=== PATIENT | male | born 2000 | race Caucasian/White ===

== ENCOUNTER 2024-10-17 11:28 | Inpatient (IN) ==
[2024-10-17] MEDS: KETOROLAC TROMETHAMINE 60 MG/2 ML VIAL IM STA (12:39)
--- NOTE | 2024-10-17 12:39 | Emergency Department Note ---
Impression & Plan Rhabdomyolysis, Pain of right arm ED Provider Note CHIEF COMPLAINT: Right arm pain x 3 days HISTORY OF PRESENT ILLNESS: Patient is a [id number] 24-year-old male who presents to the emergency department for evaluation of right arm pain. He states he was at the gym 3 days ago and did an arm workout, specifically exercised his triceps. He reports that evening he had expected discomfort from exercising. The following day, he was sore and used some ibuprofen, his pain was manageable. Unfortunately, the arm pain is getting worse. It is primary located in the distal triceps region. It is now wrapping around to the front of the arm and radiating toward his hand and toward the shoulder. He has tried ibuprofen, ice, warm bath, Biofreeze and topical diclofenac, all without relief. He has his Dexcom in the right triceps region, it has been there for about 8 days. There is no numbness or tingling. No swelling. He denies any symptoms in the left arm. REVIEW OF SYSTEMS: Review of systems as per HPI. All other systems reviewed were negative. 10 systems reviewed. PMH: External medical records are reviewed and summarized as above/below. See Problem List. SOCIAL HISTORY: Patient lives locally. Employed. PHYSICAL EXAM: Vital Signs: Reviewed Nurse's notes. CONSTITUTIONAL: Patient is a well-appearing 24-year-old male in no acute distress laying on the gurney. CARDIOVASCULAR: Regular rate and rhythm. Peripheral pulses easily palpable. RESPIRATORY: Breath sounds equal and clear to auscultation. MUSCULOSKELETAL: Examination of the right upper extremity does not reveal any obvious deformity. There is no erythema, increased warmth, swelling or palpable cords. Patient's Dexcom is in the right posterior upper arm. The patient has tenderness to palpation over the right tricep, particularly lateral muscle belly and distally. He has pain with flexion and extension of the forearm. No pain over the biceps of the forearm. Mild discomfort over the deltoid. Shoulder range of motion is full. Radial and ulnar pulses are easily palpable. Sensation to light touch is intact. INTEGUMENTARY: No lesions or rash, normal skin turgor. LYMPH: No lymphadenopathy. EMERGENCY DEPARTMENT COURSE: The patient was seen and assessed as above. External medical records are reviewed. He presents to the emergency department for evaluation of right arm pain after exercising a couple of days ago. Radiographs were deferred, as the patient had no direct trauma. Given the muscle soreness out of proportion with exam and mechanism, BMP and total CK were collected. He was treated with IM Toradol. Labs per my interpretation note normal renal function, [place] [id number]. Findings are consistent with rhabdomyolysis. IV lock was initiated. He was hydrated with normal saline solution. After review of the information above and other included data, I feel the patient will require inpatient care for hydration and monitoring of labs. Case reviewed with Dr. Snyder, discussed with ED telehealth case manager, and reviewed with the [facility] hospitalist, Dr. Gomez. Please refer to the hospitalist orders and H&P for further information. Differential diagnoses considered included muscle strain, overuse injury, tendinitis, rhabdo, triceps or biceps tendon rupture, among others. Past Med/Surg History Problem List Pain of right arm (Acute) Rhabdomyolysis (Acute) Viral upper respiratory infection (Acute) Numbness of toes (Acute) Low back pain (Acute) COVID-19 (Acute) Medical History Type 1 diabetes Surgical History No pertinent past surgical history Social History Smoking Status: Never smoker Preferred Language: Chinese Feels Safe at Home: Yes Allergies Allergies Allergy/AdvReac Type Severity Reaction Status Date / Time adapalene Allergy Itching Verified 07/30/24 19:47 amoxicillin Allergy Hives Verified 07/30/24 19:47 Home Meds Home Medications Medication Instructions Recorded Confirmed insulin pump [id number] 10/17/24 10/17/24 Results & Data (ED) Vital Signs Vital Signs - 24 hr 10/17/24 11:30 10/17/24 14:29 10/17/24 15:48 Temperature 36.5 C Temperature Source Skin Pulse Rate 84 68 Pulse Rate [Left Finger] 66 Respiratory Rate 16 20 Respiratory Effort / Characteristics Respiratory Depth Blood Pressure 135/83 Blood Pressure [Left Arm] 140/78 Blood Pressure Mean 100 Blood Pressure Mean [Left Arm] 98 Blood Pressure Position [Left Arm] Pulse Oximetry 98 100 Oxygen Delivery Method Sepsis Recent Fever Within 48 Hours No Sepsis New/Unexplained Change in Mental Status N/A Sepsis Action Taken by Nursing No Action Required 10/17/24 16:00 Temperature Temperature Source Pulse Rate Pulse Rate [Left Finger] 69 Respiratory Rate 18 Respiratory Effort / Characteristics Non-Labored Spontaneous Respiratory Depth Normal Blood Pressure Blood Pressure [Left Arm] 140/78 Blood Pressure Mean Blood Pressure Mean [Left Arm] 98 Blood Pressure Position [Left Arm] Sitting Pulse Oximetry 100 Oxygen Delivery Method Room Air Sepsis Recent Fever Within 48 Hours Sepsis New/Unexplained Change in Mental Status Sepsis Action Taken by Jail Medications Current Medication List: was personally reviewed by me Laboratory Data Attestation: I reviewed the patient's lab results. 10/17/24 12:46 10/17/24 12:46 Lab Results 10/17/24 Range/Units 12:46 WBC 5.54 (4.8-10.8) K/ul RBC 4.99 (4.70-6.10) M/uL Hgb 15.0 (14.0-18.0) g/dl Hct 43.6 (42.0-52.0) % MCV 87.4 (80.0-100.0) fL MCH 30.1 (25.0-34.0) pg MCHC 34.4 (32.0-36.0) g/dL RDW Std Deviation 38.3 (36.4-46.3) fL RDW Coeff of Anastacio 11.9 (11.5-14.5) % Plt Count 246 (130-400) K/uL MPV 11.5 (9.4-12.4) fL Immature Gran % (Auto) 0.4 % Neut % (Auto) 64.2 % Lymph % (Auto) 24.0 % Bollinger % (Auto) 8.7 % Eos % (Auto) 2.0 % Baso % (Auto) 0.7 % Neut # (Auto) 3.56 (1.40-6.50) K/uL Lymph # (Auto) 1.33 (1.20-3.40) K/uL Bollinger # (Auto) 0.48 (0.11-0.59) K/uL Eos # (Auto) 0.11 (0.00-0.50) K/uL Baso # (Auto) 0.04 (0.00-0.20) K/uL Immature Gran # (Auto) 0.02 (0.01-0.20) K/uL Sodium 137 (136-145) mmol/L Potassium 4.7 (3.5-5.1) mmol/L Chloride 103 (98-107) mmol/L Carbon Dioxide 30 (21-32) mmol/L Anion Gap 4 (3-11) BUN 19 (6-23) mg/dl Creatinine 0.78 (0.6-1.4) mg/dl Est Cr Clr Drug Dosing 154.0 ml/min eGFR 129.31 BUN/Creatinine Ratio 24.4 H (10-20) Glucose 248 H (70-99(Fasting)) mg/dl Calcium 9.1 (8.6-10.3) mg/dl Total Creatine Kinase 05631 H (30-223) U/L Administered Medications Discontinued Medications Sodium Chloride (Nss) 1,000 mls @ 999 mls/hr IV .Q1H1M SARA Stop: 10/17/24 15:17 Last Infusion: 10/17/24 15:30 Dose: Infused Documented By: Admin: 10/17/24 14:35 Dose: 999 mls/hr Documented By: ROCKY Sodium Chloride (Nss) 1,000 mls @ 999 mls/hr IV .Q1H1M ONE Stop: 10/17/24 16:00 Last Admin: 10/17/24 15:30 Dose: 999 mls/hr Documented By: OSORIO Ketorolac Tromethamine (Ketorolac Tromethamine 60 Mg/2 Ml Vial) 60 mg IM NOW STA Stop: 10/17/24 12:35 Last Admin: 10/17/24 12:39 Dose: 60 mg Documented By: ML Discharge Plan Visit Data Chief Complaint: Arm Pain Stated Complaint: RT ARM PAIN ED Provider: Iván Snyder ED Midlevel Provider: Alessio Todd Discharge Problem: Rhabdomyolysis, Pain of right arm Patient Disposition: Being Evaluated by Hospitalist Forms Stand Alone Forms: My [facility] Prescriptions Prescriptions: No Action (DME) insulin pump [id number] Referrals Referrals: Alfonzo Valdes MD [Primary Care Provider] -
[2024-10-17 13:29] LABS: BUN Creatinine Ratio 24.4 (10-20); Calcium 9.1 mg/dl (8.6-10.3); Potassium 4.7 mmol/L (3.5-5.1)
--- NOTE | 2024-10-17 14:19 | History & Physical Report ---
Date of Service October 17, 2024 Assessment & Plan (1) Rhabdomyolysis: Plan: [place] [address] Aggressive IV fluids, monitor CK levels Pain control Consider imaging studies if no improvement DM Type I: Update A1c Patient prefers to continue insulin pump while hospitalized Monitor BGs Code Status Full code DVT Px: SCDs History of Present Illness Chief Complaint: Right Arm Pain Primary Care Provider: Alfonzo Valdes MD Patient is a 24-year-old male with history of type 1 diabetes mellitus and no other significant past medical history presents with history of worsening right arm pain since 3 days duration. Patient admits to have exercised his triceps muscle 2 days ago, after which patient started to notice aching pain of his triceps muscle radiating down his arm, fingers with associated stiffness in the fingers. Patient denies any trauma, fall. He started to exercise 2 months ago and has been gradually increasing the weights from 5 to 40 pounds. He reports trying [id number] pain medications, Biofreeze which did not help with the pain. Pain significantly got worse leading him to having difficulty sleeping. He denies any numbness or tingling, swelling, rash, fever, chills, chest pain, dyspnea vomiting, diarrhea, abdominal pain. He admits to have nausea associated with the pain. Allergies Allergy/AdvReac Type Severity Reaction Status Date / Time adapalene Allergy Itching Verified 07/30/24 19:47 amoxicillin Allergy Hives Verified 07/30/24 19:47 Home Medications Medication Instructions Recorded Confirmed Type insulin pump [id number] 10/17/24 10/17/24 History Past Med/Surg History Problem List Pain of right arm (Acute) Rhabdomyolysis (Acute) Viral upper respiratory infection (Acute) Numbness of toes (Acute) Low back pain (Acute) COVID-19 (Acute) Medical History Type 1 diabetes Surgical History No pertinent past surgical history Social History Smoking Status: Never smoker Preferred Language: Luxembourgish Feels Safe at Home: Yes Immunizations: Past surgical history negative Family history: Mother: Hypothyroidism Denies smoking, occasionally drinks alcohol Review of Systems Review of Systems: All systems reviewed & are unremarkable except as noted in Subjective Physical Exam Physical Exam: Physical Exam: Vitals signs as noted above General Appearance:Thin, no apparent distress Head: normocephalic, Atraumatic Eyes: normal inspection, EOMI Neck: supple, Trachea midline Respiratory/Chest: Normal breath sounds, CTA, No accessory muscle use Cardiovascular: S1, S2, No murmur Abdomen/GI:Soft, Non tender, Bowel sounds present Extremities/Musculoskeletal:normal inspection, no edema, R arm tenderness of right triceps, pain with flexion, extension of the forearm. No swelling, rash noted. Neurologic/Psych:AAOX3, grossly no focal neurological deficits Skin: normal color, warm Results & Data Results & Data Vital Signs (Past 12 Hours) Vital Signs Temp Pulse Resp BP Pulse Ox 10/17/24 11:30 36.5 C 84 16 135/83 98 Laboratory Results [facility] 10/17/24 12:46 Sodium 137 Potassium 4.7 Chloride 103 Carbon Dioxide 30 BUN 19 Creatinine 0.78 Glucose 248 H Calcium 9.1 Cardiac Enzymes 10/17/24 Range/Units 12:46 Total Creatine Kinase 84879 H (30-223) U/L
[2024-10-17] MEDS: SODIUM CHLORIDE 0.9% 1,000 ML IV SCH ×2 (14:35→17:45)
[2024-10-17] MEDS: SODIUM CHLORIDE 0.9% 1,000 ML IV ONE (15:30)
[2024-10-17 15:42] LABS: Basophils # (auto) 0.04 K/uL (0.00-0.20); Basophils % (auto) 0.7 %; Eosinophils # (auto) 0.11 K/uL (0.00-0.50); Hematocrit (blood only) 43.6 % (42.0-52.0); Immature Granulocytes # (auto) 0.02 K/uL (0.01-0.20); Immature Granulocytes % (auto) 0.4 %; Lymphocytes # (auto) 1.33 K/uL (1.20-3.40); Mean Corpuscular Hemoglobin 30.1 pg (25.0-34.0); Mean Corpuscular Hgb Conc 34.4 g/dL (32.0-36.0); Mean Corpuscular Volume 87.4 fL (80.0-100.0); Mean Platelet Volume 11.5 fL (9.4-12.4); Monocytes # (auto) 0.48 K/uL (0.11-0.59); Monocytes % (auto) 8.7 %; Neutrophils # (auto) 3.56 K/uL (1.40-6.50); Neutrophils % (auto) 64.2 %; Platelet Count 246 K/uL (130-400); RDW Coefficient of Variation 11.9 % (11.5-14.5); RDW Standard Deviation 38.3 fL (36.4-46.3); Red Blood Count 4.99 M/uL (4.70-6.10); White Blood Count 5.54 K/ul (4.8-10.8)
[2024-10-17] MEDS ORDERED: POLYETHYLENE (MIRALAX) 17 GM PACK PO PRN (16:52)
[2024-10-17] MEDS ORDERED: DEXTROSE 50% 50 ML SYRINGE IV PRN (16:52)
[2024-10-17] MEDS ORDERED: GLUCAGON FOR INJ 1 MG VIAL SQ PRN (16:52)
[2024-10-17] MEDS ORDERED: GLUCOSE 10 TAB/TUBE PO PRN (16:52)
[2024-10-17] MEDS ORDERED: GLUCOSE 40% GEL 15 GM TUBE PO PRN (16:52)
[2024-10-17] MEDS ORDERED: ONDANSETRON INJ 2 MG/ML 2 ML VIAL IV PRN (16:52)
[2024-10-17] MEDS: CARBOHYDRATES FOR HYPOGLYCEMIA PO PRN (20:24)
[2024-10-17] MEDS: KETOROLAC TROMETHAMINE 10 MG TABLET PO PRN (20:25)
[2024-10-17] MEDS: MELATONIN 3 MG TAB PO PRN (22:48)
[2024-10-18] MEDS: ACETAMINOPHEN 325 MG TAB PO PRN (03:44)
[2024-10-18 06:21] LABS: Hematocrit (blood only) 40.7 % (42.0-52.0); Hemoglobin 13.5 g/dl (14.0-18.0); Mean Corpuscular Hgb Conc 33.2 g/dL (32.0-36.0); Mean Corpuscular Volume 87.5 fL (80.0-100.0); Mean Platelet Volume 11.2 fL (9.4-12.4); Platelet Count 214 K/uL (130-400); RDW Coefficient of Variation 11.9 % (11.5-14.5); RDW Standard Deviation 38.4 fL (36.4-46.3); Red Blood Count 4.65 M/uL (4.70-6.10); White Blood Count 5.99 K/ul (4.8-10.8)
[2024-10-18 06:40] LABS: BUN Creatinine Ratio 18.2 (10-20); Calcium 8.6 mg/dl (8.6-10.3); Potassium 4.1 mmol/L (3.5-5.1)
[2024-10-18 07:24] LABS: Albumin Globulin Ratio 1.7 (0.9-2); Albumin Level 3.5 gm/dl (3.4-5.0); Bilirubin,Total 0.4 mg/dl (0.2-1.0); Globulin 2.1 gm/dl (2.5-4.0); Magnesium 1.9 mg/dl (1.7-2.4); Total Protein 5.6 gm/dl (6.0-8.3)
[2024-10-18 07:31] LABS: Estimated Average Glucose 151 mg/dl; Hemoglobin A1C 6.9 % (4.5-5.6)
--- NOTE | 2024-10-18 10:33 | Hospitalist Progress Note ---
Date of Service October 18, 2024 Assessment & Plan (1) Rhabdomyolysis: Plan: [place] [address] Kidney function normal Aggressive IV fluids, monitor CK levels Pain control MRI right arm ordered given exam to rule out muscle tear Continue to monitor DM Type I: Hgba1c of 6.9 Patient prefers to continue insulin pump while hospitalized Monitor BGs Diet: DM1 Code Status :Full code DVT Px: SCDs Dispo: home once medically stable Admission and Anticipated Discharge Date Admission Date: October 17, 2024 Subjective patient was seen in the a.m. Denies excessive exercise but does note that he has been on a regimen with his friend going to the gym States that he tries to cut back whenever he feels sore Unsure and with lots of questions about why his CK is still elevated Notes that he has just been doing work on his biceps Review of Systems Review of Systems: All systems reviewed & are unremarkable except as noted in Subjective Physical Exam Physical Exam: General: Alert, oriented. No acute distress Skin: No noted rashes or bruises Psych: Appropriate mood and affect Neuro: R arm pain HEENT: NC/AT CV: RRR Resp: Breath sounds clear bilaterally, no increased effort of breathing Abdomen: Soft, nontender Extremities: No edema in lower extremities bilaterally. Results & Data Results & Data Vital Signs (Past 12 Hours) Vital Signs Temp Pulse Resp BP Pulse Ox O2 Del Method 10/18/24 07:25 36.8 C 81 18 126/68 98 Room Air
--- NOTE | 2024-10-18 20:14 | Magnetic Resonance Report ---
EXAM: MR humerus RT wo con CLINICAL HISTORY: PT STATES CONSISTENT PULSATING PAIN. PAIN FROM SHOULDER DOWN ENTIRE RIGHT ARM. PAIN THE MOST IN UPPER ARM. ISSUES SINCE SUNDAY. WAS WORKING OUT. NO KNOWN INJURY. R/O TEAR. NO PRIOR SURGERY. NO HX OF CANCER. BEST SCANS POSSIBLE. PT UNABLE TO SUPINATE HAND. TECHNIQUE: Multiplanar and multipulse sequence imaging of the right humerus including the shoulder joint without contrast was performed. Images were sent through PACS for diagnostic interpretation. COMPARISON: None. FINDINGS: Bones: Normal alignment of the humerus. No fractures or dislocations. No lytic or sclerotic lesions. No bone marrow edema or contusions. Joints: Normal appearance of the shoulder and elbow joints. No joint effusions or significant degenerative changes. Articular surfaces are smooth without erosions or osteophyte formation. Muscles: Normal appearance of the surrounding musculature. No muscle atrophy or abnormal signal changes. Tendons and Ligaments: Intact and normal appearance of the major tendons and ligaments around the humerus. No evidence of tendinopathy, tendon tears, or ligamentous injury. Neurovascular Structures: Normal appearance of the visualized neurovascular structures. No evidence of compression or abnormal signal changes. Soft Tissues: Normal appearance of the soft tissues surrounding the humerus. No abnormal masses, fluid collections, or signs of inflammation. IMPRESSION: 1. Normal MRI of the humerus without contrast. 2. No evidence of significant abnormalities. Electronically signed by Florina Cruz 10-18-2024 8:14 PM
[2024-10-18] MEDS: SODIUM CHLORIDE 0.9% 1,000 ML IV ONE (22:05)
[2024-10-19 07:30] LABS: Hemoglobin 14.4 g/dl (14.0-18.0); Mean Corpuscular Hemoglobin 29.3 pg (25.0-34.0); Mean Corpuscular Hgb Conc 34.3 g/dL (32.0-36.0); Mean Corpuscular Volume 85.4 fL (80.0-100.0); Mean Platelet Volume 10.7 fL (9.4-12.4); Platelet Count 225 K/uL (130-400); RDW Coefficient of Variation 11.7 % (11.5-14.5); RDW Standard Deviation 36.2 fL (36.4-46.3); Red Blood Count 4.92 M/uL (4.70-6.10); White Blood Count 6.83 K/ul (4.8-10.8)
[2024-10-19 07:51] LABS: Calcium 8.9 mg/dl (8.6-10.3); Creatinine Clr Calc Pharmacy 141.3 ml/min; Potassium 4.2 mmol/L (3.5-5.1)
[2024-10-19 08:09] LABS: Albumin Globulin Ratio 1.7 (0.9-2); Albumin Level 3.8 gm/dl (3.4-5.0); Bilirubin,Total 0.5 mg/dl (0.2-1.0); Globulin 2.3 gm/dl (2.5-4.0); Phosphorus 3.6 mg/dl (2.5-4.9); Total Protein 6.1 gm/dl (6.0-8.3)
[2024-10-19] MEDS: SODIUM CHLORIDE 0.9% 1,000 ML IV SCH (09:12)
--- NOTE | 2024-10-19 11:46 | Orthopedic Consultation ---
Date of Service October 19, 2024 Assessment & Plan (1) Rhabdomyolysis: (2) Injury of muscle of right upper arm: Plan 24-year-old male who is healthy and active as manage type 1 diabetes presents with isolated myositis and rhabdomyolysis 3 days after the usual workout. Exam is reassuring today. MRI excludes any significant injury requiring follow-up orthopedic care. Recommend treatment for rhabdomyolysis per the primary team. No orthopedic follow-up is necessary. I counseled him on returning to workouts carefully. History of Present Illness Reason for Consultation: Right upper extremity pain Requesting Physician: . Attending Physician: Mary Dover MD 24-year-old male admitted with rhabdomyolysis and tricep area pain. He reports he was working out greater than 3 days ago. He did not think anything of it. He had some soreness to follow-up. He used his massage gun and stretch. The next day he had progressive pain in his arm and extended down into his forearm. Said he had difficulty moving his hand when he came into the ER. For the past 24 hours symptoms of significantly improved. Denies any numbness or tingling in his hand. Motion has returned to his hand wrist elbow and shoulder. Allergies Allergy/AdvReac Type Severity Reaction Status Date / Time adapalene Allergy Itching Verified 07/30/24 19:47 amoxicillin Allergy Hives Verified 07/30/24 19:47 Home Medications Medication Instructions Recorded Confirmed Type insulin pump [id number] 10/17/24 10/17/24 History Past Med/Surg History Problem List (Updated 10/19/24 @ 11:45 by Rudolph Ball MD) Injury of muscle of right upper arm Pain of right arm (Acute) Rhabdomyolysis (Acute) Viral upper respiratory infection (Acute) Numbness of toes (Acute) Low back pain (Acute) COVID-19 (Acute) Medical History Type 1 diabetes Surgical History No pertinent past surgical history Social History Smoking Status: Never smoker Do You Dip or Chew Tobacco: No; Hx Alcohol Use: Yes Alcohol type: hard liquor Hx Substance Use: Yes Last Used Substance Other:: months ago Preferred Language: Qatari Communication Ability: Effective Groover Runner Required: No Beliefs That Will Affect Care: None Current Living Situation: Other Other Information That Helps Us Care for You: No Feels Safe at Home: Yes Safety Concerns: Feels Safe At This Time Assistive Devices: Contacts and Glasses Review of Systems All systems reviewed & are unremarkable except as noted in HPI & below. Physical Exam Right upper extremity: Atraumatic in appearance. No appreciable edema within the muscles nor skin, compared to his on the left side. Full active range of motion of the elbow wrist and digits without discomfort. Arm and forearm compartments are soft and compressible and without tenderness. Constitutional WD/WN, vitals as above no acute distress and not intoxicated appearing Respiratory normal respiratory effort; no labored breathing Cardiovascular Extremities: normal capillary refill Results & Data Results & Data Laboratory Results CK noted Diagnostic Findings MRI of the humerus: I reviewed the imaging as well as radiology interpretation. I have nothing to add. My interpretation is that it is a normal exam. No evidence of muscular nor tendinous injury. There is no edema throughout the soft tissues indicative of significant myositis. There is no evidence of fracture which should be seen on MRI with reasonable certainty after 3 days. X- ray is not necessary at this point based on exam. PG Care Time/CCT Total # of Minutes Spent Total Time Spent with Patient: Total time spent is greater than 50% in coordination of care (as documented) at patient's floor/unit and/or counseling patient: Coding Level of Care Code 21148 IN/OBS CONSULT LVL 3,45M Diagnoses Rhabdomyolysis M62.82 Injury of muscle of right upper arm S46.901A
--- NOTE | 2024-10-19 13:28 | Hospitalist Progress Note ---
Date of Service October 19, 2024 Assessment & Plan (1) Rhabdomyolysis: Plan [place] [address] Kidney function normal Aggressive IV fluids, monitor CK levels Pain control MRI right arm ordered given exam to rule out muscle tear Continue to monitor DM Type I: Hgba1c of 6.9 Patient prefers to continue insulin pump while hospitalized Monitor BGs Diet: DM1 Code Status :Full code DVT Px: SCDs Dispo: home once medically stable Admission and Anticipated Discharge Date Admission Date: October 17, 2024 Subjective Patient was seen in the a.m. States still having soreness in the right arm and shooting down despite negative MRI Questioning whether use of po creatinine can cause increased CK levels Review of Systems Review of Systems: All systems reviewed & are unremarkable except as noted in Subjective Physical Exam Physical Exam: General: Alert, oriented. No acute distress Skin: No noted rashes or bruises Psych: Appropriate mood and affect Neuro: R arm pain HEENT: NC/AT CV: RRR Resp: Breath sounds clear bilaterally, no increased effort of breathing Abdomen: Soft, nontender Extremities: No edema in lower extremities bilaterally. Results & Data Results & Data Vital Signs (Past 12 Hours) Vital Signs Temp Pulse Resp BP Pulse Ox O2 Del Method 10/19/24 07:33 36.4 C L 89 18 133/56 L 97 Room Air
[2024-10-20 08:16] LABS: Hemoglobin 14.7 g/dl (14.0-18.0); Mean Corpuscular Hemoglobin 28.9 pg (25.0-34.0); Mean Corpuscular Hgb Conc 34.2 g/dL (32.0-36.0); Mean Corpuscular Volume 84.5 fL (80.0-100.0); Mean Platelet Volume 10.4 fL (9.4-12.4); Platelet Count 244 K/uL (130-400); RDW Coefficient of Variation 11.8 % (11.5-14.5); RDW Standard Deviation 35.8 fL (36.4-46.3); Red Blood Count 5.09 M/uL (4.70-6.10); White Blood Count 6.02 K/ul (4.8-10.8)
[2024-10-20 09:36] LABS: Albumin Globulin Ratio 1.9 (0.9-2); Albumin Level 3.9 gm/dl (3.4-5.0); BUN Creatinine Ratio 24.1 (10-20); Bilirubin,Total 0.6 mg/dl (0.2-1.0); Calcium 8.6 mg/dl (8.6-10.3); Creatinine Clr Calc Pharmacy 138.1 ml/min; Globulin 2.1 gm/dl (2.5-4.0); Magnesium 1.9 mg/dl (1.7-2.4); Phosphorus 5.6 mg/dl (2.5-4.9); Potassium 3.9 mmol/L (3.5-5.1)
[2024-10-20] MEDS: SODIUM CHLORIDE 0.9% 1,000 ML IV SCH (10:53)
--- NOTE | 2024-10-20 11:09 | Discharge Summary ---
Discharge Summary Date of Service October 20, 2024 Principal Dx & Hospital Course #1 = Principal Diagnosis (1) Rhabdomyolysis: Plan Patient is a 24-year-old male with history of type 1 diabetes mellitus and no other significant past medical history who presented with history of worsening right arm pain of 3 days duration. Acute rhabdomyolysis noted in the ED. Acute rhabdomyolysis [place] [address] [place], 1847 on discharge Kidney function remained within normal limits Treated with aggressive IV fluids Pain control MRI right arm ordered given exam to rule out muscle tear. Was unremarkable. Orthopedics was consulted, recommended/stated the following: "24-year-old male who is healthy and active as manage type 1 diabetes presents with isolated myositis and rhabdomyolysis 3 days after the usual workout. Exam is reassuring today. MRI excludes any significant injury requiring follow-up orthopedic care. Recommend treatment for rhabdomyolysis per the primary team. No orthopedic follow-up is necessary. I counseled him on returning to workouts carefully." Please ensure that CK levels return to normal Hyperphosphatemia Pt with elevated phosphate at one point Self resolved. within normal limits on discharge DM Type I: Hgba1c of 6.9 Patient preferred to continue insulin pump while hospitalized Monitor BGs PCP followup Notes For Next Care Provider Please ensure that CK level is back to normal after discharge Medication Changes From Visit None Admission HPI Per Admitting Provider Patient is a 24-year-old male with history of type 1 diabetes mellitus and no other significant past medical history presents with history of worsening right arm pain since 3 days duration. Patient admits to have exercised his triceps muscle 2 days ago, after which patient started to notice aching pain of his triceps muscle radiating down his arm, fingers with associated stiffness in the fingers. Patient denies any trauma, fall. He started to exercise 2 months ago and has been gradually increasing the weights from 5 to 40 pounds. He reports trying [id number] pain medications, Biofreeze which did not help with the pain. Pain significantly got worse leading him to having difficulty sleeping. He denies any numbness or tingling, swelling, rash, fever, chills, chest pain, dyspnea vomiting, diarrhea, abdominal pain. He admits to have nausea associated with the pain. Admission Exam Per Admitting Provider Vitals signs as noted above General Appearance:Thin, no apparent distress Head: normocephalic, Atraumatic Eyes: normal inspection, EOMI Neck: supple, Trachea midline Respiratory/Chest: Normal breath sounds, CTA, No accessory muscle use Cardiovascular: S1, S2, No murmur Abdomen/GI:Soft, Non tender, Bowel sounds present Extremities/Musculoskeletal:normal inspection, no edema, R arm tenderness of right triceps, pain with flexion, extension of the forearm. No swelling, rash noted. Neurologic/Psych:AAOX3, grossly no focal neurological deficits Skin: normal color, warm Discharge Exam General: Alert, oriented. No acute distress Skin: No noted rashes or bruises Psych: Appropriate mood and affect Neuro: R arm pain HEENT: NC/AT CV: RRR Resp: Breath sounds clear bilaterally, no increased effort of breathing Abdomen: Soft, nontender Extremities: No edema in lower extremities bilaterally. Updated Medication List Medication Instructions Recorded Confirmed Type insulin pump [id number] 10/17/24 10/17/24 History Hospital Stay Data Consultations 10/17/24 14:22 ED Decision to Admit Stat 10/19/24 09:13 Consult Orthopedic Surgery Routine Diagnostic Imagining Performed 10/18/24 16:36 MRI Arm [MR humerus RT wo con] Urgent Humerus MRI 10/18/24 16:36 EXAM: MR humerus RT wo con CLINICAL HISTORY: PT STATES CONSISTENT PULSATING PAIN. PAIN FROM SHOULDER DOWN ENTIRE RIGHT ARM. PAIN THE MOST IN UPPER ARM. ISSUES SINCE SUNDAY. WAS WORKING OUT. NO KNOWN INJURY. R/O TEAR. NO PRIOR SURGERY. NO HX OF CANCER. BEST SCANS POSSIBLE. PT UNABLE TO SUPINATE HAND. TECHNIQUE: Multiplanar and multipulse sequence imaging of the right humerus including the shoulder joint without contrast was performed. Images were sent through PACS for diagnostic interpretation. COMPARISON: None. FINDINGS: Bones: Normal alignment of the humerus. No fractures or dislocations. No lytic or sclerotic lesions. No bone marrow edema or contusions. Joints: Normal appearance of the shoulder and elbow joints. No joint effusions or significant degenerative changes. Articular surfaces are smooth without erosions or osteophyte formation. Muscles: Normal appearance of the surrounding musculature. No muscle atrophy or abnormal signal changes. Tendons and Ligaments: Intact and normal appearance of the major tendons and ligaments around the humerus. No evidence of tendinopathy, tendon tears, or ligamentous injury. Neurovascular Structures: Normal appearance of the visualized neurovascular structures. No evidence of compression or abnormal signal changes. Soft Tissues: Normal appearance of the soft tissues surrounding the humerus. No abnormal masses, fluid collections, or signs of inflammation. IMPRESSION: 1. Normal MRI of the humerus without contrast. 2. No evidence of significant abnormalities. Electronically signed by Florina Cruz 10-18-2024 8:14 PM Discharge Instructions Given to Patient (Per Discharging Provider) Dimitris, You were admitted with concern for rhabdomyolysis. We treated you with IV fluids and it significantly improved. You will need close follow-up with your primary care provider to ensure that your CK levels are back to normal. Please continue with your increased oral fluid intake at home. Your phosphorus levels are now back to normal. You are also seen by biology specialist who evaluated your arm and did not note any acute findings. He recommends that you be very careful with your return to working out. Consider not working out as intensely as you had been before. Please keep close follow up with your primary care provider after discharge. Please do not hesitate to come back to the emergency room if your symptoms worsen or return. It was a pleasure taking care of you while you were here. Total Time Total Time Spent Total Time Spent (In Minutes): 60
[2024-10-20 15:13] LABS: Phosphorus 4.5 mg/dl (2.5-4.9)
[2024-10-20 15:25] VITALS: BP 121/67; PULSE 76; RESP 16; TEMP 98.6; O2SAT 97
== END 2024-10-20 18:18 | disposition home or self-care (01) | DRG 558 ==
LOC: ED 11:28 → 3N 14:55 → SUATTDRO 14:55 → 3N 16:20